=== PATIENT | male | born 1935 | race Caucasian/White ===

== ENCOUNTER 2017-03-09 14:37 | Outpatient (CLI) | payer MEDICARE ==
--- NOTE | 2017-03-09 16:34 | RAD ---
EXAM: CHEST TWO VIEWS 03/09/17 HISTORY: Dyspnea on exertion. COMPARISON: 03/24/16. FINDINGS: Normal cardiac silhouette. The pulmonary vessels and hilum are normal. Costophrenic angles are qing r. Hyperinflation. No consolidation or mass. No pneumothorax or osseous abnormalities. Stable calcif ications, presumed to be pleural based. IMPRESSION: 1. Hyperinflation. Chronic changes. 2. Atherosclerosis of the aorta. POS: [facility]
== END 2017-03-09 14:38 | disposition home or self-care (01) ==
LOC: MADRAD 14:37
PROVIDERS: ATTEND Obstetrics & Gynecology
DX: R06.09 Other forms of dyspnea (principal); I70.0 Atherosclerosis of aorta; R91.8 Other nonspecific abnormal finding of lung field
CPT/HCPCS: 71020

== ENCOUNTER 2017-07-20 12:24 | Outpatient (CLI) | payer MEDICARE ==
--- NOTE | 2017-07-20 13:31 | RAD ---
LEFT HAND THREE VIEWS: HISTORY: Left hand pain, proximal third digit. COMPARISON: None. FINDINGS: There is mild narrowing of the carpometacarpal joints, as well as the radial carpal joint. There is narrowing of the interphalangeal metacarpal phalangeal joints. No erosions or periostitis. A subcho ndral cyst formation is present at the middle phalanx of the third finger base. In the thenar soft tissues, there is a radiopaque foreign object, measuring 2 x 3 mm. IMPRESSION: 1. Degenerative changes. 2. No acute fracture. 3. Radiopaque foreign object in the thenar soft tissues, measuring 3 x 2 mm. POS: [facility]
== END 2017-07-20 12:25 | disposition home or self-care (01) ==
LOC: MADRAD 12:24
PROVIDERS: ATTEND Obstetrics & Gynecology
DX: M79.642 Pain in left hand (principal); M19.042 Primary osteoarthritis, left hand; S61.422A Laceration with foreign body of left hand, initial encounter

== ENCOUNTER 2018-03-30 08:41 | Emergency (ER) | payer MEDICARE ==
--- NOTE | 2018-03-30 09:28 | RAD ---
LEFT HIP 2 VIEWS: Date: 03/30/18 HISTORY: Fall. Left hip pain. FINDINGS/IMPRESSION: Degenerative changes are seen. No acute fracture or dislocation identified. There are postop changes in the pelvis. POS: [facility]
--- NOTE | 2018-03-30 09:43 | RAD ---
LEFT KNEE 4 VIEWS: Date: 03/30/18 HISTORY: Fall. Left knee pain. FINDINGS/IMPRESSION: Degenerative changes are present. No acute fracture or dislocation is identified. POS: [facility]
--- NOTE | 2018-03-30 09:44 | RAD ---
LEFT SHOULDER 3 VIEWS: Date: 03/30/18 HISTORY: Fall. Left shoulder pain. FINDINGS/IMPRESSION: There are degenerative changes in the acromioclavicular joint. No acute fracture or dislocation is id entified. POS: [facility]
== END 2018-03-30 10:50 | disposition home or self-care (01) ==
LOC: MADERS 08:41
DX: S70.02XA Contusion of left hip, initial encounter (principal); S80.02XA Contusion of left knee, initial encounter; S40.012A Contusion of left shoulder, initial encounter; E78.5 Hyperlipidemia, unspecified; W01.0XXA Fall on same level from slipping, tripping and stumbling without subsequent striking against object, initial encounter

== ENCOUNTER 2019-01-29 14:45 | Outpatient (CLI) | payer MEDICARE ==
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
== END 2019-01-29 14:46 | disposition home or self-care (01) ==
LOC: MADRAD 14:45
PROVIDERS: ATTEND Family Medicine
DX: S69.91XA Unspecified injury of right wrist, hand and finger(s), initial encounter (principal); S62.350A Nondisplaced fracture of shaft of second metacarpal bone, right hand, initial encounter for closed fracture

== ENCOUNTER 2019-02-17 09:27 | Emergency (ER) | payer MEDICARE ==
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
== END 2019-02-17 10:23 | disposition home or self-care (01) ==
LOC: MADERS 09:27
DX: S62.330A Displaced fracture of neck of second metacarpal bone, right hand, initial encounter for closed fracture (principal); E78.5 Hyperlipidemia, unspecified; E78.00 Pure hypercholesterolemia, unspecified; Z85.46 Personal history of malignant neoplasm of prostate; Z79.82 Long term (current) use of aspirin; Z79.899 Other long term (current) drug therapy; V89.2XXA Person injured in unspecified motor-vehicle accident, traffic, initial encounter

== ENCOUNTER 2019-05-11 11:31 | Emergency (ER) | payer MEDICARE ==
[~2019-05-11 11:31] MED LIST: Sodium Chloride 0.9% 1,000 ML BAG ONE
--- NOTE | 2019-05-11 12:06 | RAD ---
Exam: Chest one view HISTORY:Dyspnea Comparison: 03/24/2016 FINDINGS: Lungs: Hyperinflated. Pleural-based calcifications are again demonstrated, bilaterally. Cardiac silhouette:Accentuated by portable technique Pulmonary vessels: Normal Pleural Spaces: Clear Pneumothorax: None Osseous abnormalities: None of acuity. IMPRESSION: No focal consolidation. Stable chronic findings.
[2019-05-11 12:28] LABS: ALT (SGPT) 8 U/L (8-55); AST (SGOT) 15 U/L (5-34); Albumin 3.7 g/dL (3.4-4.8); Alkaline Phosphatase 54 U/L (40-110); Anion Gap 12 mmol/L (10-20); BUN (Urea Nitrogen) 15 mg/dL (8.4-25.7); Bilirubin, Total 0.8 mg/dL (0.2-1.2); CK (CPK) 54 U/L (30-200); Calc. Creatinine Clearance 0 mL/min (70-130); Calcium 8.6 mg/dL (7.8-10.44); Carbon Dioxide 23 mmol/L (23-31); Chloride 110 mmol/L (98-107); Estimated GFR-MDRD 67; Globulin 2.7 g/dL (2.4-3.5); Glucose 91 mg/dL (83-110); Potassium 4.1 mmol/L (3.5-5.1); Protein, Total 6.4 g/dL (5.8-8.1); Sodium 141 mmol/L (136-145)
[2019-05-11 12:29] LABS: #Basophils 0.1 thou/uL (0.0-0.2); #Eosinphils 0.1 thou/uL (0.0-0.7); #Monocytes 0.3 thou/uL (0.11-0.59); #Neutrophils 2.3 thou/uL (1.40-6.50); %Basophils 2.6 % (0.0-1.0); %Eosinophils 1.5 % (0.0-10.0); %Lymphocytes 26.5 % (21.0-51.0); %Monocytes 8.5 % (0.0-10.0); %Neutrophils 60.8 % (42.0-75.0); Anisocytosis MARKED = >30 cells (100X) (0-5/hpf); Band 2 % (5-11); Hemoglobin 3.7 g/dL (14.0-18.0); Hypochromia MARKED = >30 cells (100X) (0-5/hpf); Lymphocytes 19 % (21-51); MDiff Complete? YES; Mean Corpuscular HGB CONC 25.2 g/dL (32.0-36.0); Mean Corpuscular Volume 59.4 fL (78.0-98.0); Mean Platelet Volume 10.6 fL (7.4-10.4); Microcytosis MARKED = >30 cells (100X) (0-5/hpf); Monocytes 10 % (0-10); Neutrophil 69 % (42-75); Platelet Count 210 thou/uL (130-400); Platelet Morphology Comment Appears Adequate; Poikilocytosis MODERATE=16-30 cells (100X) (0-5/hpf); RBC Distribution Width 16.9 % (11.5-14.5); Red Blood Cell (RBC) Count 2.48 mill/uL (4.70-6.10); White Blood Cell (WBC) Count 3.8 thou/uL (4.8-10.8)
== END 2019-05-11 13:42 | disposition short-term general hospital (02) ==
LOC: MADERS 11:31
DX: I95.9 Hypotension, unspecified (principal); D64.9 Anemia, unspecified; R06.00 Dyspnea, unspecified; E78.5 Hyperlipidemia, unspecified; E78.00 Pure hypercholesterolemia, unspecified; Z79.82 Long term (current) use of aspirin; Z79.899 Other long term (current) drug therapy
CPT/HCPCS: 71045; 80053; 82550; 83605; 83880; 84484; 85025; 85060; 86850; 86900; 86901; 93005; 94640; 94760; J7050; J7620

== ENCOUNTER 2020-03-11 23:22 | Emergency (ER) | payer MEDICARE ==
[2020-03-11 23:52] LABS: Mean Corpuscular HGB CONC 27.3 g/dL (32.0-36.0); Mean Corpuscular Volume 66.1 fL (78.0-98.0); Mean Platelet Volume 7.8 fL (7.4-10.4); Platelet Count 229 thou/uL (130-400); RBC Distribution Width 17.9 % (11.5-14.5); Red Blood Cell (RBC) Count 2.79 mill/uL (4.70-6.10); White Blood Cell (WBC) Count 4.2 thou/uL (4.8-10.8)
[2020-03-12] LABS: Prothrombin Time 12.8 sec (12.0-14.7)
[2020-03-12 00:10] LABS: #Basophils 0.1 thou/uL (0.0-0.2); #Eosinphils 0.2 thou/uL (0.0-0.7); #Lymphocytes 1.2 thou/uL (1.20-3.40); #Monocytes 0.6 thou/uL (0.11-0.59); #Neutrophils 2.2 thou/uL (1.40-6.50); %Basophils 2.7 % (0.0-1.0); %Eosinophils 4.1 % (0.0-10.0); %Lymphocytes 28.2 % (21.0-51.0); ALT (SGPT) 11 U/L (8-55); AST (SGOT) 16 U/L (5-34); Albumin 3.8 g/dL (3.4-4.8); Alkaline Phosphatase 62 U/L (40-110); Anion Gap 13 mmol/L (10-20); Anisocytosis SLIGHT = 6-15 cells (100X) (0-5/hpf); BUN (Urea Nitrogen) 31 mg/dL (8.4-25.7); Bilirubin, Total 0.4 mg/dL (0.2-1.2); Calc. Creatinine Clearance 0 mL/min (70-130); Calcium 8.4 mg/dL (7.8-10.44); Carbon Dioxide 21 mmol/L (23-31); Chloride 113 mmol/L (98-107); Estimated GFR-MDRD 55; Globulin 2.7 g/dL (2.4-3.5); Glucose 93 mg/dL (83-110); Hypochromia MODERATE=16-30 cells (100X) (0-5/hpf); MDiff Complete? YES; Microcytosis MODERATE=15-30 cells (100X) (0-5/hpf); Ovalocytes SLIGHT = 2-5 cells (100X) (0-1/hpf); Platelet Morphology Comment Appears Adequate; Potassium 3.8 mmol/L (3.5-5.1); Protein, Total 6.5 g/dL (5.8-8.1); Reflex for Review?? YES; Sodium 143 mmol/L (136-145); Spherocytes SLIGHT = 1-5 cells (100X) (None Seen); Stomatocytes SLIGHT = 2-5 cells (100X) (0-1/hpf); Tear Drops SLIGHT = 2-5 cells (100X) (0-1/hpf)
[2020-03-12] MEDS ORDERED: Pantoprazole 40 MG VIAL ONE (01:09)
[2020-03-12] MEDS ORDERED: Sodium Chloride 0.9% 250 ML 250 ML ONE ×2 (01:10→01:53)
== END 2020-03-12 02:33 | disposition short-term general hospital (02) ==
LOC: MADERS 23:22
DX: D64.9 Anemia, unspecified (principal); K92.2 Gastrointestinal hemorrhage, unspecified; E78.5 Hyperlipidemia, unspecified; E78.00 Pure hypercholesterolemia, unspecified
CPT/HCPCS: 36430; 80053; 82274; 85025; 85610; 86850; 86900; 86901; 86920; 96374; 99284; P9016; C9113; J7050

== ENCOUNTER 2021-02-08 12:11 | Emergency (ER) | payer MEDICARE ==
[2021-02-08 13:38] LABS: #Basophils 0.1 thou/uL (0.0-0.2); #Eosinphils 0.2 thou/uL (0.0-0.7); #Monocytes 0.5 thou/uL (0.11-0.59); #Neutrophils 5.1 thou/uL (1.40-6.50); %Basophils 1.9 % (0.0-1.0); %Eosinophils 3.5 % (0.0-10.0); %Lymphocytes 13.7 % (21.0-51.0); %Monocytes 7.4 % (0.0-10.0); %Neutrophils 73.5 % (42.0-75.0); Hemoglobin 10.1 g/dL (14.0-18.0); Mean Corpuscular HGB CONC 30.7 g/dL (32.0-36.0); Mean Corpuscular Hemoglobin 27.8 pg (27.0-31.0); Mean Corpuscular Volume 90.7 fL (78.0-98.0); Mean Platelet Volume 10.8 fL (7.4-10.4); Platelet Count 196 thou/uL (130-400); RBC Distribution Width 13.6 % (11.5-14.5); Red Blood Cell (RBC) Count 3.62 mill/uL (4.70-6.10); White Blood Cell (WBC) Count 6.9 thou/uL (4.8-10.8)
[2021-02-08 13:40] LABS: Prothrombin Time 12.9 sec (12.0-14.7)
[2021-02-08 13:41] LABS: PTT 32.1 sec (22.9-36.1)
[2021-02-08 13:52] LABS: ALT (SGPT) 59 U/L (8-55); AST (SGOT) 49 U/L (5-34); Albumin 3.5 g/dL (3.4-4.8); Alkaline Phosphatase 110 U/L (40-110); Anion Gap 13 mmol/L (10-20); BUN (Urea Nitrogen) 25 mg/dL (8.4-25.7); Bilirubin, Total 0.4 mg/dL (0.2-1.2); Calc. Creatinine Clearance 0 mL/min (70-130); Calcium 9.1 mg/dL (7.8-10.44); Carbon Dioxide 25 mmol/L (23-31); Chloride 107 mmol/L (98-107); Globulin 2.8 g/dL (2.4-3.5); Glucose 82 mg/dL (83-110); Magnesium 2.3 mg/dL (1.6-2.6); Potassium 4.4 mmol/L (3.5-5.1); Protein, Total 6.3 g/dL (5.8-8.1); Sodium 141 mmol/L (136-145)
[2021-02-08 14:11] LABS: Potassium 4.6 mmol/L (3.5-5.1)
[2021-02-08 15:21] LABS: Bilirubin Negative (Negative); Blood, Urine Negative (Negative); Clarity Clear (Clear); Glucose, Urine (Dipstick) 100 mg/dL (Negative); Ketone, Urine Negative (Negative); Leukocyte Negative (Negative); Nitrite Negative (Negative); Protein, Urine (Dipstick) Negative (Neg-Trace); Specific Gravity, Urine 1.025 (1.005-1.030); Urobilinogen 0.2 mg/dL (Less than 2); pH, Urine 5.5 (5.0-9.0)
[2021-02-08 16:01] LABS: #Basophils 0.1 thou/uL (0.0-0.2); #Eosinphils 0.2 thou/uL (0.0-0.7); #Monocytes 0.3 thou/uL (0.11-0.59); #Neutrophils 4.7 thou/uL (1.40-6.50); %Basophils 1.6 % (0.0-1.0); %Eosinophils 2.7 % (0.0-10.0); %Lymphocytes 16.7 % (21.0-51.0); %Monocytes 4.8 % (0.0-10.0); %Neutrophils 74.3 % (42.0-75.0); Hemoglobin 10.2 g/dL (14.0-18.0); Mean Corpuscular Hemoglobin 27.7 pg (27.0-31.0); Mean Corpuscular Volume 89.4 fL (78.0-98.0); Platelet Count 188 thou/uL (130-400); RBC Distribution Width 13.8 % (11.5-14.5); Red Blood Cell (RBC) Count 3.66 mill/uL (4.70-6.10); White Blood Cell (WBC) Count 6.3 thou/uL (4.8-10.8)
[2021-02-08] MEDS ORDERED: Azithromycin 250 MG TAB ONE (18:43)
== END 2021-02-08 19:43 | disposition home or self-care (01) ==
LOC: MADERS 12:11
DX: R94.31 Abnormal electrocardiogram [ECG] [EKG] (principal); R53.1 Weakness; D64.9 Anemia, unspecified; E78.5 Hyperlipidemia, unspecified; E78.00 Pure hypercholesterolemia, unspecified; Z85.46 Personal history of malignant neoplasm of prostate; Z87.891 Personal history of nicotine dependence; Z79.82 Long term (current) use of aspirin; Z79.891 Long term (current) use of opiate analgesic; Z79.899 Other long term (current) drug therapy
CPT/HCPCS: 36416; 80053; 81003; 82274; 83605; 83735; 83880; 84443; 84484; 85025; 85610; 85730; 86850; 86900; 86901; 87086; 93005; 99285; 36415-59

== ENCOUNTER 2022-12-08 16:03 | Inpatient (IN) | payer OTHER ==
[2022-12-08] MEDS ORDERED: Lantiseptic Ointment 130 GM JAR TOP PRN (18:29)
[2022-12-08] MEDS ORDERED: Cyclobenzaprine 10 MG TAB PO PRN (18:43)
[2022-12-08] MEDS: Lantiseptic Ointment 130 GM JAR TOP SCH (20:37)
[2022-12-08] MEDS: Latanoprost 0.005% Ophth Soln 2.5 ml Bottle EA EYE SCH (20:37)
[2022-12-08] MEDS: Brimonidine Tartrate 0.2% Ophth Soln 5 ml Bottle EA EYE SCH (20:37)
[2022-12-08] MEDS: Senokot S 8.6-50 MG TAB PO SCH (20:38)
[2022-12-08] MEDS: Pramipexole Di-HCl 0.25 MG TAB PO SCH (20:38)
[2022-12-08] MEDS: Aspirin 81 mg Enteric Coated Tablet PO SCH (20:38)
[2022-12-08] MEDS: Indomethacin 25 mg Capsule PO SCH (20:38)
[2022-12-09] MEDS: Acetaminophen 325 MG TAB PO SCH ×4 (00:17→17:26)
[2022-12-09] MEDS: Acetaminophen/Codeine 30-300mg Tablet PO SCH ×2 (00:19→05:39)
[2022-12-09 05:09] LABS: #Basophils 0.1 thou/uL (0.0-0.2); #Eosinphils 0.7 thou/uL (0.0-0.7); #Monocytes 0.8 thou/uL (0.11-0.59); #Neutrophils 6.1 thou/uL (1.40-6.50); %Basophils 0.9 % (0.0-1.0); %Eosinophils 8.3 % (0.0-10.0); %Lymphocytes 11.6 % (21.0-51.0); %Monocytes 8.7 % (0.0-10.0); %Neutrophils 70.5 % (42.0-75.0); Hemoglobin 10.3 g/dL (14.0-18.0); Mean Corpuscular HGB CONC 33.1 g/dL (32.0-36.0); Mean Corpuscular Hemoglobin 30.2 pg (27.0-31.0); Mean Corpuscular Volume 91.2 fl (78.0-98.0); Platelet Count 348 10x3/uL (130-400); RBC Distribution Width 16.9 % (11.5-14.5); Red Blood Cell (RBC) Count 3.42 mill/uL (4.70-6.10); White Blood Cell (WBC) Count 8.6 10x3/uL (4.8-10.8)
[2022-12-09 05:29] LABS: ALT (SGPT) 23 U/L (8-55); AST (SGOT) 26 U/L (5-34); Albumin 2.9 g/dL (3.4-4.8); Alkaline Phosphatase 168 U/L (40-110); Anion Gap 9 mmol/L (10-20); BUN (Urea Nitrogen) 18 mg/dL (8.4-25.7); Bilirubin, Total 0.9 mg/dL (0.2-1.2); Calc. Creatinine Clearance 58 mL/min (70-130); Calcium 8.3 mg/dL (7.8-10.44); Carbon Dioxide 26 mmol/L (23-31); Chloride 105 mmol/L (98-107); Estimated GFR 90; Globulin 2.3 g/dL (2.4-3.5); Glucose 93 mg/dL (83-110); Potassium 4.3 mmol/L (3.5-5.1); Protein, Total 5.2 g/dL (5.8-8.1); Sodium 136 mmol/L (136-145)
[2022-12-09] MEDS ORDERED: Acetaminophen/Codeine 30-300mg Tablet PO PRN (06:02)
[2022-12-09] MEDS: Ferrous Sulfate 325 MG TAB PO SCH (08:14)
[2022-12-09] MEDS: Senokot S 8.6-50 MG TAB PO SCH ×2 (08:14→20:29)
[2022-12-09] MEDS: Indomethacin 25 mg Capsule PO SCH ×2 (08:14→20:29)
[2022-12-09] MEDS: Aspirin 81 mg Enteric Coated Tablet PO SCH ×2 (08:15→20:29)
[2022-12-09] MEDS: Latanoprost 0.005% Ophth Soln 2.5 ml Bottle EA EYE SCH ×2 (08:15→20:29)
[2022-12-09] MEDS: Amlodipine 5 MG TAB PO SCH (08:15)
[2022-12-09] MEDS: Brimonidine Tartrate 0.2% Ophth Soln 5 ml Bottle EA EYE SCH ×2 (08:18→20:28)
[2022-12-09] MEDS: Linaclotide [Linzess] 145 MCG Capsule PO SCH (08:19)
[2022-12-09] MEDS: Lantiseptic Ointment 130 GM JAR TOP SCH ×2 (08:19→20:30)
[2022-12-09] MEDS: Pramipexole Di-HCl 0.25 MG TAB PO SCH (20:29)
[2022-12-10] MEDS: Acetaminophen 325 MG TAB PO SCH ×5 (00:11→23:54)
[2022-12-10] MEDS: Aspirin 81 mg Enteric Coated Tablet PO SCH ×2 (08:16→20:33)
[2022-12-10] MEDS: Indomethacin 25 mg Capsule PO SCH ×2 (08:16→20:32)
[2022-12-10] MEDS: Amlodipine 5 MG TAB PO SCH (08:16)
[2022-12-10] MEDS: Senokot S 8.6-50 MG TAB PO SCH ×2 (08:17→20:33)
[2022-12-10] MEDS: Ferrous Sulfate 325 MG TAB PO SCH (08:17)
[2022-12-10] MEDS: Latanoprost 0.005% Ophth Soln 2.5 ml Bottle EA EYE SCH ×2 (08:18→20:39)
[2022-12-10] MEDS: Brimonidine Tartrate 0.2% Ophth Soln 5 ml Bottle EA EYE SCH ×2 (08:18→20:33)
[2022-12-10] MEDS: Linaclotide [Linzess] 145 MCG Capsule PO SCH (08:19)
[2022-12-10] MEDS: Lantiseptic Ointment 130 GM JAR TOP SCH ×2 (08:21→20:33)
[2022-12-10] MEDS: Pramipexole Di-HCl 0.25 MG TAB PO SCH (20:33)
[2022-12-11] MEDS: Acetaminophen 325 MG TAB PO SCH ×3 (05:40→17:48)
[2022-12-11] MEDS: Aspirin 81 mg Enteric Coated Tablet PO SCH ×2 (08:49→20:01)
[2022-12-11] MEDS: Senokot S 8.6-50 MG TAB PO SCH ×2 (08:49→20:01)
[2022-12-11] MEDS: Ferrous Sulfate 325 MG TAB PO SCH (08:49)
[2022-12-11] MEDS: Amlodipine 5 MG TAB PO SCH (08:49)
[2022-12-11] MEDS: Indomethacin 25 mg Capsule PO SCH ×2 (08:49→20:01)
[2022-12-11] MEDS: Lantiseptic Ointment 130 GM JAR TOP SCH ×2 (08:50→20:02)
[2022-12-11] MEDS: Brimonidine Tartrate 0.2% Ophth Soln 5 ml Bottle EA EYE SCH ×2 (08:50→20:00)
[2022-12-11] MEDS: Latanoprost 0.005% Ophth Soln 2.5 ml Bottle EA EYE SCH ×2 (08:50→20:00)
[2022-12-11] MEDS: Linaclotide [Linzess] 145 MCG Capsule PO SCH (08:51)
[2022-12-11] MEDS: Pramipexole Di-HCl 0.25 MG TAB PO SCH (20:02)
[2022-12-12] MEDS: Acetaminophen 325 MG TAB PO SCH ×4 (00:12→17:45)
[2022-12-12] MEDS: Latanoprost 0.005% Ophth Soln 2.5 ml Bottle EA EYE SCH ×2 (08:42→19:40)
[2022-12-12] MEDS: Amlodipine 5 MG TAB PO SCH (08:43)
[2022-12-12] MEDS: Ferrous Sulfate 325 MG TAB PO SCH (08:43)
[2022-12-12] MEDS: Senokot S 8.6-50 MG TAB PO SCH ×2 (08:43→19:36)
[2022-12-12] MEDS: Indomethacin 25 mg Capsule PO SCH ×2 (08:43→19:36)
[2022-12-12] MEDS: Brimonidine Tartrate 0.2% Ophth Soln 5 ml Bottle EA EYE SCH ×2 (08:43→19:35)
[2022-12-12] MEDS: Aspirin 81 mg Enteric Coated Tablet PO SCH ×2 (08:43→19:35)
[2022-12-12] MEDS: Lantiseptic Ointment 130 GM JAR TOP SCH ×2 (08:44→19:36)
[2022-12-12] MEDS: Linaclotide [Linzess] 145 MCG Capsule PO SCH (08:44)
[2022-12-12] MEDS: Pramipexole Di-HCl 0.25 MG TAB PO SCH (19:36)
[2022-12-13] MEDS: Acetaminophen 325 MG TAB PO SCH ×3 (00:35→11:39)
[2022-12-13] MEDS: Senokot S 8.6-50 MG TAB PO SCH ×2 (08:16→21:35)
[2022-12-13] MEDS: Aspirin 81 mg Enteric Coated Tablet PO SCH ×2 (08:16→21:35)
[2022-12-13] MEDS: Latanoprost 0.005% Ophth Soln 2.5 ml Bottle EA EYE SCH ×2 (08:16→21:35)
[2022-12-13] MEDS: Indomethacin 25 mg Capsule PO SCH ×2 (08:16→21:35)
[2022-12-13] MEDS: Amlodipine 5 MG TAB PO SCH (08:16)
[2022-12-13] MEDS: Linaclotide [Linzess] 145 MCG Capsule PO SCH (08:17)
[2022-12-13] MEDS: Brimonidine Tartrate 0.2% Ophth Soln 5 ml Bottle EA EYE SCH ×2 (08:17→21:35)
[2022-12-13] MEDS: Lantiseptic Ointment 130 GM JAR TOP SCH ×2 (08:17→21:36)
[2022-12-13] MEDS: Ferrous Sulfate 325 MG TAB PO SCH (08:17)
[2022-12-13] MEDS: Pramipexole Di-HCl 0.25 MG TAB PO SCH (21:35)
[2022-12-14] MEDS: Acetaminophen 500 MG TAB PO PRN ×3 (04:15→20:56)
[2022-12-14] MEDS: Aspirin 81 mg Enteric Coated Tablet PO SCH ×2 (09:26→20:56)
[2022-12-14] MEDS: Indomethacin 25 mg Capsule PO SCH ×2 (09:26→20:56)
[2022-12-14] MEDS: Amlodipine 5 MG TAB PO SCH (09:26)
[2022-12-14] MEDS: Ferrous Sulfate 325 MG TAB PO SCH (09:27)
[2022-12-14] MEDS: Senokot S 8.6-50 MG TAB PO SCH ×2 (09:28→20:56)
[2022-12-14] MEDS: Latanoprost 0.005% Ophth Soln 2.5 ml Bottle EA EYE SCH ×2 (09:28→20:57)
[2022-12-14] MEDS: Brimonidine Tartrate 0.2% Ophth Soln 5 ml Bottle EA EYE SCH ×2 (09:28→20:57)
[2022-12-14] MEDS: Lantiseptic Ointment 130 GM JAR TOP SCH ×2 (09:29→20:57)
[2022-12-14] MEDS: Pramipexole Di-HCl 0.25 MG TAB PO SCH (20:56)
[2022-12-15] MEDS: Ferrous Sulfate 325 MG TAB PO SCH (08:26)
[2022-12-15] MEDS: Senokot S 8.6-50 MG TAB PO SCH ×2 (08:26→21:49)
[2022-12-15] MEDS: Aspirin 81 mg Enteric Coated Tablet PO SCH ×2 (08:26→21:49)
[2022-12-15] MEDS: Amlodipine 5 MG TAB PO SCH (08:26)
[2022-12-15] MEDS: Indomethacin 25 mg Capsule PO SCH ×2 (08:26→21:49)
[2022-12-15] MEDS: Latanoprost 0.005% Ophth Soln 2.5 ml Bottle EA EYE SCH ×2 (08:27→21:51)
[2022-12-15] MEDS: Brimonidine Tartrate 0.2% Ophth Soln 5 ml Bottle EA EYE SCH ×2 (08:28→21:51)
[2022-12-15] MEDS: Lantiseptic Ointment 130 GM JAR TOP SCH ×2 (08:28→21:51)
[2022-12-15] MEDS: Acetaminophen 500 MG TAB PO PRN ×2 (08:29→21:50)
[2022-12-15] MEDS: Pramipexole Di-HCl 0.25 MG TAB PO SCH (21:49)
[2022-12-16] MEDS: Brimonidine Tartrate 0.2% Ophth Soln 5 ml Bottle EA EYE SCH ×2 (08:59→20:25)
[2022-12-16] MEDS: Senokot S 8.6-50 MG TAB PO SCH ×2 (09:00→20:26)
[2022-12-16] MEDS: Indomethacin 25 mg Capsule PO SCH ×2 (09:00→20:26)
[2022-12-16] MEDS: Amlodipine 5 MG TAB PO SCH (09:01)
[2022-12-16] MEDS: Ferrous Sulfate 325 MG TAB PO SCH (09:02)
[2022-12-16] MEDS: Latanoprost 0.005% Ophth Soln 2.5 ml Bottle EA EYE SCH ×2 (09:02→20:25)
[2022-12-16] MEDS: Aspirin 81 mg Enteric Coated Tablet PO SCH ×2 (09:02→20:26)
[2022-12-16] MEDS: Lantiseptic Ointment 130 GM JAR TOP SCH ×2 (09:03→20:27)
[2022-12-16] MEDS: Acetaminophen 500 MG TAB PO PRN ×2 (14:47→19:55)
[2022-12-16] MEDS: Pramipexole Di-HCl 0.25 MG TAB PO SCH (20:26)
[2022-12-17] MEDS: Senokot S 8.6-50 MG TAB PO SCH ×2 (08:19→20:36)
[2022-12-17] MEDS: Indomethacin 25 mg Capsule PO SCH ×2 (08:19→20:36)
[2022-12-17] MEDS: Ferrous Sulfate 325 MG TAB PO SCH (08:20)
[2022-12-17] MEDS: Amlodipine 5 MG TAB PO SCH (08:20)
[2022-12-17] MEDS: Aspirin 81 mg Enteric Coated Tablet PO SCH ×2 (08:20→20:36)
[2022-12-17] MEDS: Latanoprost 0.005% Ophth Soln 2.5 ml Bottle EA EYE SCH ×2 (08:21→20:39)
[2022-12-17] MEDS: Brimonidine Tartrate 0.2% Ophth Soln 5 ml Bottle EA EYE SCH ×2 (08:21→20:35)
[2022-12-17] MEDS: Lantiseptic Ointment 130 GM JAR TOP SCH ×2 (08:23→20:38)
[2022-12-17] MEDS: Pramipexole Di-HCl 0.25 MG TAB PO SCH (20:36)
[2022-12-18] MEDS: Aspirin 81 mg Enteric Coated Tablet PO SCH ×2 (09:34→19:50)
[2022-12-18] MEDS: Amlodipine 5 MG TAB PO SCH (09:34)
[2022-12-18] MEDS: Senokot S 8.6-50 MG TAB PO SCH ×2 (09:35→19:50)
[2022-12-18] MEDS: Latanoprost 0.005% Ophth Soln 2.5 ml Bottle EA EYE SCH ×2 (09:35→19:49)
[2022-12-18] MEDS: Brimonidine Tartrate 0.2% Ophth Soln 5 ml Bottle EA EYE SCH ×2 (09:35→19:52)
[2022-12-18] MEDS: Indomethacin 25 mg Capsule PO SCH ×2 (09:35→19:50)
[2022-12-18] MEDS: Ferrous Sulfate 325 MG TAB PO SCH (09:35)
[2022-12-18] MEDS: Lantiseptic Ointment 130 GM JAR TOP SCH ×2 (09:38→19:51)
[2022-12-18] MEDS: Acetaminophen 500 MG TAB PO PRN (11:52)
[2022-12-18] MEDS: Pramipexole Di-HCl 0.25 MG TAB PO SCH (19:50)
[2022-12-19] MEDS: Indomethacin 25 mg Capsule PO SCH ×2 (09:02→20:07)
[2022-12-19] MEDS: Amlodipine 5 MG TAB PO SCH (09:03)
[2022-12-19] MEDS: Aspirin 81 mg Enteric Coated Tablet PO SCH ×2 (09:03→20:07)
[2022-12-19] MEDS: Senokot S 8.6-50 MG TAB PO SCH ×2 (09:03→20:07)
[2022-12-19] MEDS: Ferrous Sulfate 325 MG TAB PO SCH (09:03)
[2022-12-19] MEDS: Acetaminophen 500 MG TAB PO PRN (09:04)
[2022-12-19] MEDS: Latanoprost 0.005% Ophth Soln 2.5 ml Bottle EA EYE SCH ×2 (09:04→20:09)
[2022-12-19] MEDS: Brimonidine Tartrate 0.2% Ophth Soln 5 ml Bottle EA EYE SCH ×2 (09:04→20:06)
[2022-12-19] MEDS: Lantiseptic Ointment 130 GM JAR TOP SCH ×2 (09:07→20:08)
[2022-12-19] MEDS: Pramipexole Di-HCl 0.25 MG TAB PO SCH (20:07)
[2022-12-20] MEDS: Senokot S 8.6-50 MG TAB PO SCH ×2 (08:30→20:22)
[2022-12-20] MEDS: Amlodipine 5 MG TAB PO SCH (08:31)
[2022-12-20] MEDS: Indomethacin 25 mg Capsule PO SCH ×2 (08:31→20:22)
[2022-12-20] MEDS: Ferrous Sulfate 325 MG TAB PO SCH (08:31)
[2022-12-20] MEDS: Aspirin 81 mg Enteric Coated Tablet PO SCH ×2 (08:31→20:22)
[2022-12-20] MEDS: Lantiseptic Ointment 130 GM JAR TOP SCH ×2 (08:32→20:23)
[2022-12-20] MEDS: Brimonidine Tartrate 0.2% Ophth Soln 5 ml Bottle EA EYE SCH ×2 (08:32→20:21)
[2022-12-20] MEDS: Latanoprost 0.005% Ophth Soln 2.5 ml Bottle EA EYE SCH ×2 (08:32→20:23)
[2022-12-20] MEDS: Pramipexole Di-HCl 0.25 MG TAB PO SCH (20:22)
[2022-12-21] MEDS: Amlodipine 5 MG TAB PO SCH (09:30)
[2022-12-21] MEDS: Senokot S 8.6-50 MG TAB PO SCH ×2 (09:30→21:05)
[2022-12-21] MEDS: Indomethacin 25 mg Capsule PO SCH ×2 (09:30→21:05)
[2022-12-21] MEDS: Ferrous Sulfate 325 MG TAB PO SCH (09:31)
[2022-12-21] MEDS: Latanoprost 0.005% Ophth Soln 2.5 ml Bottle EA EYE SCH ×2 (09:31→21:06)
[2022-12-21] MEDS: Brimonidine Tartrate 0.2% Ophth Soln 5 ml Bottle EA EYE SCH ×2 (09:31→21:06)
[2022-12-21] MEDS: Lantiseptic Ointment 130 GM JAR TOP SCH ×2 (09:31→21:06)
[2022-12-21] MEDS: Aspirin 81 mg Enteric Coated Tablet PO SCH ×2 (09:31→21:05)
[2022-12-21] MEDS: Pramipexole Di-HCl 0.25 MG TAB PO SCH (21:05)
[2022-12-22] MEDS: Amlodipine 5 MG TAB PO SCH (08:57)
[2022-12-22] MEDS: Aspirin 81 mg Enteric Coated Tablet PO SCH ×2 (08:57→20:01)
[2022-12-22] MEDS: Ferrous Sulfate 325 MG TAB PO SCH (08:57)
[2022-12-22] MEDS: Indomethacin 25 mg Capsule PO SCH ×2 (08:58→20:01)
[2022-12-22] MEDS: Senokot S 8.6-50 MG TAB PO SCH ×2 (08:58→20:01)
[2022-12-22] MEDS: Brimonidine Tartrate 0.2% Ophth Soln 5 ml Bottle EA EYE SCH ×2 (08:59→20:00)
[2022-12-22] MEDS: Lantiseptic Ointment 130 GM JAR TOP SCH ×2 (08:59→20:02)
[2022-12-22] MEDS: Latanoprost 0.005% Ophth Soln 2.5 ml Bottle EA EYE SCH ×2 (08:59→20:00)
[2022-12-22] MEDS: Pramipexole Di-HCl 0.25 MG TAB PO SCH (20:01)
[2022-12-23 08:45] VITALS: BMI 17.6
[2022-12-23] MEDS: Latanoprost 0.005% Ophth Soln 2.5 ml Bottle EA EYE SCH ×2 (08:49→20:20)
[2022-12-23] MEDS: Ferrous Sulfate 325 MG TAB PO SCH (08:51)
[2022-12-23] MEDS: Brimonidine Tartrate 0.2% Ophth Soln 5 ml Bottle EA EYE SCH ×2 (08:51→20:20)
[2022-12-23] MEDS: Indomethacin 25 mg Capsule PO SCH ×2 (08:52→20:20)
[2022-12-23] MEDS: Amlodipine 5 MG TAB PO SCH (08:52)
[2022-12-23] MEDS: Senokot S 8.6-50 MG TAB PO SCH ×2 (08:53→20:20)
[2022-12-23] MEDS: Aspirin 81 mg Enteric Coated Tablet PO SCH ×2 (08:53→21:00)
[2022-12-23] MEDS: Lantiseptic Ointment 130 GM JAR TOP SCH ×2 (08:56→20:20)
[2022-12-23] MEDS: Pramipexole Di-HCl 0.25 MG TAB PO SCH (20:21)
[2022-12-24] MEDS: Senokot S 8.6-50 MG TAB PO SCH ×2 (08:11→21:17)
[2022-12-24] MEDS: Ferrous Sulfate 325 MG TAB PO SCH (08:11)
[2022-12-24] MEDS: Indomethacin 25 mg Capsule PO SCH ×2 (08:11→21:20)
[2022-12-24] MEDS: Aspirin 81 mg Enteric Coated Tablet PO SCH ×2 (08:11→21:17)
[2022-12-24] MEDS: Amlodipine 5 MG TAB PO SCH (08:12)
[2022-12-24] MEDS: Brimonidine Tartrate 0.2% Ophth Soln 5 ml Bottle EA EYE SCH ×2 (08:14→21:21)
[2022-12-24] MEDS: Latanoprost 0.005% Ophth Soln 2.5 ml Bottle EA EYE SCH ×2 (08:15→21:18)
[2022-12-24] MEDS: Lantiseptic Ointment 130 GM JAR TOP SCH ×2 (08:16→21:21)
[2022-12-24] MEDS: Pramipexole Di-HCl 0.25 MG TAB PO SCH (21:18)
[2022-12-25] MEDS: Latanoprost 0.005% Ophth Soln 2.5 ml Bottle EA EYE SCH ×2 (09:07→20:03)
[2022-12-25] MEDS: Brimonidine Tartrate 0.2% Ophth Soln 5 ml Bottle EA EYE SCH ×2 (09:08→20:02)
[2022-12-25] MEDS: Indomethacin 25 mg Capsule PO SCH ×2 (09:08→20:01)
[2022-12-25] MEDS: Aspirin 81 mg Enteric Coated Tablet PO SCH ×2 (09:09→20:01)
[2022-12-25] MEDS: Amlodipine 5 MG TAB PO SCH (09:09)
[2022-12-25] MEDS: Lantiseptic Ointment 130 GM JAR TOP SCH ×2 (09:10→20:05)
[2022-12-25] MEDS: Ferrous Sulfate 325 MG TAB PO SCH (09:10)
[2022-12-25] MEDS: Senokot S 8.6-50 MG TAB PO SCH ×2 (09:12→20:09)
[2022-12-25] MEDS: Pramipexole Di-HCl 0.25 MG TAB PO SCH (20:02)
[2022-12-26] MEDS: Latanoprost 0.005% Ophth Soln 2.5 ml Bottle EA EYE SCH ×2 (08:06→20:39)
[2022-12-26] MEDS: Indomethacin 25 mg Capsule PO SCH ×2 (08:07→20:38)
[2022-12-26] MEDS: Aspirin 81 mg Enteric Coated Tablet PO SCH ×2 (08:07→20:38)
[2022-12-26] MEDS: Brimonidine Tartrate 0.2% Ophth Soln 5 ml Bottle EA EYE SCH ×2 (08:07→20:40)
[2022-12-26] MEDS: Ferrous Sulfate 325 MG TAB PO SCH (08:07)
[2022-12-26] MEDS: Amlodipine 5 MG TAB PO SCH (08:08)
[2022-12-26] MEDS: Lantiseptic Ointment 130 GM JAR TOP SCH ×2 (08:08→20:45)
[2022-12-26] MEDS: Senokot S 8.6-50 MG TAB PO SCH ×2 (08:10→20:39)
[2022-12-26] MEDS: Pramipexole Di-HCl 0.25 MG TAB PO SCH (20:38)
[2022-12-27 05:07] LABS: Hemoglobin 8.6 g/dL (14.0-18.0); Mean Corpuscular HGB CONC 31.8 g/dL (32.0-36.0); Mean Corpuscular Hemoglobin 31.3 pg (27.0-31.0); Mean Corpuscular Volume 98.4 fl (78.0-98.0); Platelet Count 219 10x3/uL (130-400); RBC Distribution Width 17.1 % (11.5-14.5); Red Blood Cell (RBC) Count 2.76 mill/uL (4.70-6.10); White Blood Cell (WBC) Count 5.6 10x3/uL (4.8-10.8)
[2022-12-27 07:52] VITALS: BP 126/63; TEMP 97.3
[2022-12-27] MEDS: Indomethacin 25 mg Capsule PO SCH (09:21)
[2022-12-27] MEDS: Aspirin 81 mg Enteric Coated Tablet PO SCH (09:21)
[2022-12-27] MEDS: Senokot S 8.6-50 MG TAB PO SCH (09:22)
[2022-12-27] MEDS: Amlodipine 5 MG TAB PO SCH (09:22)
[2022-12-27] MEDS: Brimonidine Tartrate 0.2% Ophth Soln 5 ml Bottle EA EYE SCH (09:23)
[2022-12-27] MEDS: Ferrous Sulfate 325 MG TAB PO SCH (09:23)
[2022-12-27] MEDS: Latanoprost 0.005% Ophth Soln 2.5 ml Bottle EA EYE SCH (09:23)
[2022-12-27] MEDS: Lantiseptic Ointment 130 GM JAR TOP SCH (09:23)
== END 2022-12-27 12:45 | disposition home or self-care (01) | DRG 560 ==
LOC: MADMS 16:03
PROVIDERS: ADMIT Family Medicine; ATTEND Family Medicine
DX: S72.001D Fracture of unspecified part of neck of right femur, subsequent encounter for closed fracture with routine healing (principal); E44.0 Moderate protein-calorie malnutrition; Z68.1 Body mass index [BMI] 19.9 or less, adult; W18.30XD Fall on same level, unspecified, subsequent encounter; R53.81 Other malaise; I10 Essential (primary) hypertension; D64.9 Anemia, unspecified; F17.210 Nicotine dependence, cigarettes, uncomplicated; K27.9 Peptic ulcer, site unspecified, unspecified as acute or chronic, without hemorrhage or perforation; Z85.46 Personal history of malignant neoplasm of prostate; Z87.440 Personal history of urinary (tract) infections; Z88.5 Allergy status to narcotic agent; Z88.2 Allergy status to sulfonamides; Z79.899 Other long term (current) drug therapy; Z79.82 Long term (current) use of aspirin
CPT/HCPCS: 36415; 80053; 85025; 85027

== ENCOUNTER 2025-05-14 17:05 | Inpatient (IN) | payer OTHER ==
[2025-05-15 05:21] LABS: #Basophils 0.1 thou/uL (0.0-0.2); #Eosinophils 0.4 thou/uL (0.0-0.7); #Lymphocytes 1.1 thou/uL (1.20-3.40); #Monocytes 0.6 thou/uL (0.11-0.59); #Neutrophils 3.8 thou/uL (1.40-6.50); %Basophils 2.0 % (0.0-1.0); %Eosinophils 6.4 % (0.0-10.0); %Lymphocytes 18.1 % (21.0-51.0); %Monocytes 9.6 % (0.0-10.0); %Neutrophils 63.9 % (42.0-75.0); Hematocrit 35.8 % (42.0-52.0); Hemoglobin 11.3 g/dL (14.0-18.0); Mean Corpuscular Hemoglobin 29.4 pg (27.0-31.0); Mean Corpuscular Volume 93.1 fl (78.0-98.0); Platelet Count 205 10x3/uL (130-400); Red Blood Cell (RBC) Count 3.84 mill/uL (4.70-6.10); White Blood Cell (WBC) Count 5.9 10x3/uL (4.8-10.8)
[2025-05-15 05:38] LABS: ALT (SGPT) 39 U/L (Less than 45); AST (SGOT) 44 U/L (11-34); Albumin 3.1 g/dL (3.1-4.5); Alkaline Phosphatase 106 U/L (40-110); Anion Gap 13 mmol/L (10-20); BUN (Urea Nitrogen) 20 mg/dL (8.4-25.7); Bilirubin, Total 0.5 mg/dL (0.3-1.2); Calc. Creatinine Clearance 44 mL/min (70-130); Calcium 8.8 mg/dL (7.8-10.44); Carbon Dioxide 24 mmol/L (23-31); Chloride 109 mmol/L (98-107); Globulin 3.0 g/dL (2.4-3.5); Glucose 82 mg/dL (83-110); Potassium 3.9 mmol/L (3.5-5.1); Sodium 142 mmol/L (136-145)
[2025-05-15] MEDS: Pantoprazole 40 MG DR.TAB PO SCH (08:35)
[2025-05-15] MEDS: Folic Acid 1 MG TAB PO SCH (08:35)
[2025-05-15] MEDS: Ferrous Sulfate 325 MG TAB PO SCH (08:35)
[2025-05-15] MEDS: Enoxaparin 40 MG (0.4 mL) SYRINGE SC SCH (08:36)
[2025-05-15] MEDS: Cyanocobalamin (Vitamin B-12) 1,000 MCG TAB PO SCH (20:53)
[2025-05-15] MEDS: Cholecalciferol 1,000 UNITS (25 MCG) TAB PO SCH (20:53)
[2025-05-15] MEDS: Melatonin 3 MG TAB PO PRN (20:56)
[2025-05-17] MEDS: Acetaminophen 325 MG TAB PO PRN (10:23)
[2025-05-17] MEDS: FLU (Fluad Triv) 25-26 (65UP)PF 45 MCG/0.5 ML Syringe IM ONE (11:12)
[2025-05-24 21:51] LABS: #Basophils 0.1 thou/uL (0.0-0.2); #Eosinophils 0.4 thou/uL (0.0-0.7); #Lymphocytes 1.6 thou/uL (1.20-3.40); #Monocytes 0.5 thou/uL (0.11-0.59); #Neutrophils 4.2 thou/uL (1.40-6.50); %Basophils 1.6 % (0.0-1.0); %Eosinophils 6.1 % (0.0-10.0); %Lymphocytes 24.0 % (21.0-51.0); %Monocytes 6.6 % (0.0-10.0); %Neutrophils 61.7 % (42.0-75.0); Hematocrit 35.3 % (42.0-52.0); Hemoglobin 11.3 g/dL (14.0-18.0); Mean Corpuscular Hemoglobin 30.1 pg (27.0-31.0); Mean Corpuscular Volume 94.2 fl (78.0-98.0); Platelet Count 278 10x3/uL (130-400); Red Blood Cell (RBC) Count 3.74 mill/uL (4.70-6.10); White Blood Cell (WBC) Count 6.8 10x3/uL (4.8-10.8)
[2025-05-24 22:07] LABS: ALT (SGPT) 50 U/L (Less than 45); AST (SGOT) 45 U/L (11-34); Albumin 3.8 g/dL (3.1-4.5); Alkaline Phosphatase 115 U/L (40-110); Anion Gap 15 mmol/L (10-20); BUN (Urea Nitrogen) 35 mg/dL (8.4-25.7); Bilirubin, Total 0.2 mg/dL (0.3-1.2); Calc. Creatinine Clearance 40 mL/min (70-130); Calcium 9.5 mg/dL (7.8-10.44); Carbon Dioxide 21 mmol/L (23-31); Chloride 110 mmol/L (98-107); Globulin 3.3 g/dL (2.4-3.5); Glucose 167 mg/dL (83-110); Potassium 4.3 mmol/L (3.5-5.1); Sodium 142 mmol/L (136-145)
[2025-05-24] MEDS ORDERED: QUEtiapine 25 MG TAB PO PRN (22:41)
[2025-05-26 08:53] VITALS: BP 142/62; TEMP 97.5
[2025-05-26] MEDS: Enoxaparin 30 MG (0.3 mL) SYRINGE SC SCH (08:53)
== END 2025-05-26 10:25 | disposition home health service (06) | DRG 945 ==
LOC: MADMS 18:30
PROVIDERS: ADMIT Family Medicine; ATTEND Family Medicine
PROC: F07Z9ZZ Gait Training/Functional Ambulation Treatment (ICD-10-PCS; principal; 2025-05-14)
DX: R53.81 Other malaise (principal); G93.41 Metabolic encephalopathy; I10 Essential (primary) hypertension; Z88.2 Allergy status to sulfonamides; D63.8 Anemia in other chronic diseases classified elsewhere; Z79.899 Other long term (current) drug therapy
CPT/HCPCS: 36415; 71045; 80053; 85025; J1650